=== PATIENT | female | born 2000 | race Two or more races ===

== ENCOUNTER 2024-12-24 10:09 | Emergency (ER) | payer OTHER ==
[~2024-12-24] VITALS: Ht 165.1 cm; Wt 87.1 kg
[2024-12-24] MEDS ORDERED: RINGERS SOLUTION,LACTATED 1,000 ML IV STA (11:08)
[2024-12-24 11:47] LABS: BASO % 0.5 % (0.1-1.2); EOS # 0.05 (0.04-0.54); EOS % 0.6 % (0.7-7.0); LYMPH # 1.99 (1.18-3.74); LYMPH % 23.5 % (19.3-53.1); MEAN PLATELET VOLUME 8.70 fl (9.4-12.4); MONO # 0.52 (0.24-0.82); MONO % 6.1 % (4.7-12.5); NEUT # 5.86 (1.56-6.13); NEUT % 69.1 % (34.0-71.1); RED CELL DISTRIBUTION WIDTH 12.6 % (11.6-14.4)
[2024-12-24 12:07] LABS: INR 1.09
[2024-12-24 12:15] LABS: URINE APPEARANCE Clear; URINE BILIRRUBIN Negative (NEGATIVE); URINE BLOOD Moderate; URINE COLOR Yellow; URINE GLUCOSE Negative (NEGATIVE); URINE KETONE 15 (NEGATIVE); URINE LEUKOCYTE Negative; URINE NITRATE Negative; URINE PROTEIN Negative (NEGATIVE); URINE UROBILINOGEN 0.2 E.U./dl
[2024-12-24 12:27] LABS: BUN CREA RATIO 12.0 (7.0-25.0); CREATININE SERUM 0.5 mg/dL (0.55-1.02); GFR 154.28; GLUCOSE FASTING 89.0 mg/dL (65-100); OSMOLALITY SERUM 275.0 MOSM/KG (275-295)
[2024-12-24 12:28] LABS: HCG QUANTITATIVE 22666.0 mUI/mL (1-3)
[2024-12-24 12:57] LABS: URINE BACTERIA FEW; URINE RBC 0-3 /HPF; URINE WBC 0-2 /hpf
== END 2024-12-24 16:28 | disposition home or self-care (01) ==
LOC: ER 10:09
PROVIDERS: General Practice
DX: O20.8 Other hemorrhage in early pregnancy (principal); Z3A.01 Less than 8 weeks gestation of pregnancy